=== PATIENT | male | born 1945 | race Caucasian/White ===

== ENCOUNTER 2017-06-18 17:44 | Emergency (ER) | payer MEDICARE, OTHER ==
[~2017-06-18] VITALS: Ht 170.2 cm; Wt 87.0 kg
[2017-06-18 18:12] VITALS: Ht 170.2 cm; Wt 87.0 kg
[2017-06-18 22:40] VITALS: BP 167/88; PULSE 85; RESP 18; TEMP 97.8
[2017-06-18] MEDS ORDERED: LORAZEPAM 0.5 MG TAB PO ONE (23:00)
[2017-06-18 23:13] LABS: BASOPHIL # 0.1 10^3/ul (0.0-0.1); BASOPHILS % 0.7 % (0.0-2.0); EOSINOPHILS # 0.2 10^3/ul (0.0-0.5); EOSINOPHILS % 1.6 % (0.0-7.0); HEMATOCRIT 46.1 % (42.0-52.0); HEMOGLOBIN 15.5 g/dl (14.0-18.0); LYMPHOCYTES % 18.6 % (15.0-51.0); MEAN CORPUSCULAR HEMOGLOBIN 30.9 pg (29.0-33.0); MEAN CORPUSCULAR HGB CONC 33.6 g/dl (32.0-37.0); MEAN CORPUSCULAR VOLUME 91.8 fl (82.0-101.0); MEAN PLATELET VOLUME 10.6 fl (7.4-10.4); MONOCYTES % 9.1 % (0.0-11.0); NEUTROPHIL # 7.6 10^3/ul (1.6-7.5); NEUTROPHILS % 69.4 % (39.0-77.0); PLATELET COUNT 266 10^3/UL (140-415); RED BLOOD COUNT 5.02 10^6/ul (4.70-6.10); RED CELL DISTRIBUTION WIDTH 15.2 % (11.5-14.5); WHITE BLOOD COUNT 10.9 10^3/ul (4.8-10.8)
[2017-06-18 23:17] LABS: INR 0.93; PROTIME 12.5 Sec (12.2-14.2)
[2017-06-18 23:18] LABS: PARTIAL THROMBOPLASTIN TIME 37.2 Sec (25.0-35.0)
[2017-06-18 23:22] LABS: CALCIUM 9.5 mg/dl (8.4-10.2); CREATININE 1.27 mg/dl (0.61-1.24); POTASSIUM 3.9 mmol/L (3.5-5.1)
--- NOTE | 2017-06-18 23:25 | RADRPT ---
PROCEDURE: Ultrasound of the left lower extremity venous system. CLINICAL INDICATION: Left leg pain and swelling, deep venous thrombosis TECHNIQUE: Malloy scale with and without compression, color doppler, spectral doppler of the venous system of the left lower extremity was performed. Venous augmentation maneuvers were utilized. COMPARISON: No prior studies are available for comparison. FINDINGS: Common femoral vein: Patent. Femoral vein: Patent. Popliteal vein: Patent. Calf veins: Patent. No soft tissue abnormalities are identified. IMPRESSION: No evidence of a deep vein thrombosis within the left lower extremity. RPTAT: AADD .Manolo Braden MD, MD Date Time Electronically viewed and signed by .Manolo Braden MD, on 06/18/2017 23:24 .B/
--- NOTE | 2017-06-18 23:36 | ERD ---
ER Documentation Chief Complaint Date/Time DATE: 06/18/17 TIME: 23:34 Chief Complaint Left knee/calf pain/swelling x 6 weeks HPI This 72-year-old male presents to the emergency room for evaluation of left lower extremity pain and swelling. The patient states that he has had pain and swelling for the past month. States that he had an ultrasound done at an outside facility approximately 3 weeks ago which was negative. The patient states he is taking blood thinners at this time because he did have a stroke in the past. This patient denies any fevers or chills and denies any trauma. ROS All systems reviewed and are negative except as per history of present illness. Allergies Allergies: Coded Allergies: No Known Drug Allergy (Verified Allergy, Unknown, 03/22/08) PMhx/Soc History of Surgery: Yes (HEART, STENT) Anesthesia Reaction: No Hx Neurological Disorder: Yes (MAY 2007) Hx Respiratory Disorders: No Hx Cardiac Disorders: Yes Hx Psychiatric Problems: No Hx Miscellaneous Medical Probl: Yes Hx Alcohol Use: Yes (3 beers/day) Hx Substance Use: No Hx Tobacco Use: Yes (quit cigarettes 10 yrs ago) Smoking Status: Former smoker Physical Exam Vitals Vital Signs Date Time Temp Pulse Resp B/P Pulse Ox O2 Delivery O2 Flow Rate FiO2 06/18/17 22:40 97.8 85 18 167/88 98 Room Air 06/18/17 18:12 98.1 101 20 134/73 99 Physical Exam INITIAL VITAL SIGNS: Reviewed by me GENERAL: The patient is well developed and appropriate for usual state of health in no apparent distress HEENT: Pupils equal, round, and reactive to light. EOMI. There is no scleral icterus. NECK: C-spine is soft and supple, there is no meningismus. There is no cervical lymphadenopathy. LUNGS: Clear to auscultation bilaterally. There are no rales, wheezes or rhonchi. HEART: Regular rate and rhythm, no murmurs, clicks, rubs or gallops. ABDOMEN: Soft, non-tender, non-distended. There are bowel sounds in all four quadrants. No rebound or guarding. EXTREMITIES: Lower extremity with 1+ pitting edema, mild erythema, negative skin sloughing, no calf tenderness, NEUROLOGICAL: The patient moves all four extremities with 5/5 strength. Cranial nerves II - XII are intact. Normal gait. Alert and oriented SKIN: There is no apparent rash or petechiae. HEME/LYMPHATIC: There is no evidence of excessive bruising or lymphedema. PSYCHIATRIC: The patient does not appear anxious or depressed. Result Diagram: 06/18/17224406/18/172244 Results 24 hrs Laboratory Tests Test 06/18/17 22:45 White Blood Count 10.910^3/ul Red Blood Count 5.0210^6/ul Hemoglobin 15.5g/dl Hematocrit 46.1% Mean Corpuscular Volume 91.8fl Mean Corpuscular Hemoglobin 30.9pg Mean Corpuscular Hemoglobin Concent 33.6g/dl Red Cell Distribution Width 15.2% Platelet Count 24502^3/UL Mean Platelet Volume 10.6fl Neutrophils % 69.4% Lymphocytes % 18.6% Monocytes % 9.1% Eosinophils % 1.6% Basophils % 0.7% Nucleated Red Blood Cells % 0.0/100WBC Neutrophils # 7.610^3/ul Lymphocytes # 2.010^3/ul Monocytes # 1.010^3/ul Eosinophils # 0.210^3/ul Basophils # 0.110^3/ul Nucleated Red Blood Cells # 0.010^3/ul Prothrombin Time 12.5Sec Prothrombin Time Ratio 1.0 INR International Normalized Ratio 0.93 Activated Partial Thromboplast Time 37.2Sec Sodium Level 139mmol/L Potassium Level 3.9mmol/L Chloride Level 107mmol/L Carbon Dioxide Level 21mmol/L Anion Gap 15 Blood Urea Nitrogen 15mg/dl Creatinine 1.27mg/dl Glucose Level 99mg/dl Calcium Level 9.5mg/dl Current Medications Medications (Trade) Dose Ordered Sig/Domenico Route PRN Reason Start Time Stop Time Status Last Admin Dose Admin Lorazepam (Ativan) 0.5 mg ONCE ONCE PO 06/18/17 23:00 06/18/17 23:01 DC 06/18/17 23:08 Procedures/MDM Ultrasound left lower extremity: No DVT This 72-year-old male presents to the ER for evaluation of left lower extremity swelling and pain. The patient did undergo an ultrasound to rule out DVT which is negative. Lab work is within normal limits. The patient likely has a cellulitis and will be discharged home with a prescription for Keflex at this time. Smoking Cessation Therapy: Pt. was lectured for greater than 3 minutes on the health risks of continued smoking and the benefits of cessation. Departure Diagnosis: Primary Impression: Left leg cellulitis Additional Impression: Tobacco abuse Condition: Stable IRINA ZUNIGA DO Jun 18, 2017 23:36
[2017-06-18] MEDS ORDERED: CEPH-443 PO (23:37)
[2017-06-18] MEDS ORDERED: HYDR-906 PO (23:44)
== END 2017-06-18 22:40 | disposition home or self-care (01) ==
LOC: E/R 17:44
DX: L03.116 Cellulitis of left lower limb (principal); Z87.891 Personal history of nicotine dependence
CPT/HCPCS: 80048; 85025; 85610; 85730; 93971